=== PATIENT | female | born 1965 | race Two or more races ===

== ENCOUNTER 2025-07-16 09:52 | Outpatient (CLI) | payer OTHER | END 2025-07-16 10:00 | disposition home or self-care (01) | LOC: SONOGRAMA 09:52 | PROVIDERS: ATTEND Pathology Anatomic Pathology & Clinical Pathology | DX: E04.2 Nontoxic multinodular goiter (principal) ==

== ENCOUNTER 2025-08-13 09:29 | Outpatient (CLI) | payer OTHER | END 2025-08-13 09:31 | disposition home or self-care (01) | LOC: SONOGRAMA 09:29 | PROVIDERS: ATTEND Pathology Anatomic Pathology & Clinical Pathology | DX: E04.2 Nontoxic multinodular goiter (principal); E06.3 Autoimmune thyroiditis ==